=== PATIENT | female | born 1960 | race Caucasian/White ===

== ENCOUNTER 2021-11-30 09:56 | Outpatient (RCR) | payer BC, SELFPAY ==
--- NOTE | 2021-12-04 13:38 | PTOPEVAL ---
Thank you for referring Frida Hernandez to [facility].? The patient is scheduled to be seen for therapy? ____x/week for ___ weeks. Please review, sign, date and return this plan of care KALEE. I agree with and certify that the following plan of care is medically necessary. Referring Physician Date Admitting Provider: Attending Provider: Leoncio Conn, MD Referring Provider: *PT Outpatient Evaluation Start: 11/30/21 09:33 Freq: Status: Active Protocol: Document 11/30/21 09:46 [facility] (Rec: 11/30/21 13:04 [facility] [id number]) Therapy Assessment Status Assessment Status Assessment Status Evaluation Evaluation Information Problem Diagnosis R knee pain Onset 11/28/21 Additional Evaluation Detail LEFS = 31.3% Functionally Impaired Subjective Information Pt reports that she was on her Query Text:As Reported By Patient/ knees a lot last fall when Family she was redoing her floor. She was having a lot of pain in her R knee after that and was unable to walk well following that. She then went to the doctor to get XRAYs which were negative for arthritis. She has since been icing her knee and jose alejandro wrapping it to reduce the swelling. She states that her exercise consists of walking approx 3 days a week a few miles each day. 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 Prior Level of Function Comments Additional Prior Level of Function She was able to walk without Comments pain and was able to get up and down from the floor without any problems but now has pain and difficulty with these. Pain Assessment Timing of Pain Assessment Timing of Pain Assessment Pre-Treatment Pain Scale Pain Scale Used Numeric (1 - 10) Self Report Pain Assessment Right Knee(s) Reported Pain Level 3 Pain Description Aching,Tightness Pain Frequency Intermittent Greatest Pain Intensity 7 Pain Score Pain Score 3: Self Report Interventions Used Interventions Used By Clinicians Activity or ADL's,Education, Exercise Lower Extremity Range of Motion Knee Range of Motion Right Knee Flexio
== END 2021-11-30 11:46 | disposition home or self-care (01) ==
LOC: CHSPT 09:56
PROVIDERS: PCP Family Medicine; Visit Provider Family Medicine
DX: M25.561 Pain in right knee (principal)
CPT/HCPCS: 97014; 97110; 97161; G0283

== ENCOUNTER 2024-04-15 14:37 | Outpatient (CLI) | payer SELFPAY ==
--- NOTE | ~2024-04-15 | DEXA_ITS ---
Bone Density Report Name: YOANA ROUSSEAU Age: 63 Sex: Female Ethnicity: White Date of : 1960 Indication: screening for osteoporosis; height loss; hysterectomy; Referring Provider: JOYCELYN, KAYLEIGH Blue Study: Bone densitometry was performed. Exam Date: April 15, 2024 Accession number: [id number] Bone Density: Region BMD T-score Z-score Classification AP Spine(L1-L4) 0.929 -1.1 0.5 Osteopenia Femoral Neck (Left) 0.716 -1.2 0.2 Osteopenia Total Hip (Left) 0.962 0.2 1.3 Normal Femoral Neck (Right) 0.725 -1.1 0.3 Osteopenia Total Hip (Right) 1.003 0.5 1.6 Normal Femoral Neck Mean 0.721 -1.2 0.2 Osteopenia Total Hip Mean 0.983 0.3 1.4 Normal World Health Organization criteria for BMD impression classify patients as: Normal (T-score at or above -1.0), Osteopenia (T-score between -1.0 and -2.5), or Osteoporosis (T-score at or below -2.5). 10-year Fracture Risk: FRAX not reported because: Premenopausal woman Clinical Information Provided by Patient: Has the following medical conditions: Hysterectomy Patient maximum height was 53 Menopause Age: 51 Drinks caffeinated beverages Onset of menses at age 14 Premenopausal Impression: The patient's bone mass is within expected range for age, gender and ethnicity. Discussion: BONE DENSITY IS WITHIN EXPECTED LIMITS FOR AGE, SEX AND RACE. Bone density is within expected limits for age, sex and race at all sites measured. The patient should follow a healthful lifestyle (good nutrition with adequate calcium and vitamin D, and appropriate weight-bearing exercise). Follow-Up: Consider repeating this study in 2 to 3 years to reassess this patient's status, or sooner if there is some new clinical indication. Reported by: RADHA on 04/15/2024 3:17:00 PM. Reviewed, dictated and finalized at location [facility]
--- NOTE | ~2024-04-15 | MM_ITS ---
EXAMINATION: MM screening latha BI w niels HISTORY: Screening TECHNIQUE: Craniocaudal and mediolateral oblique 3-D tomosynthesis images were obtained and synthetic 2-D images were generated. CAD analysis was submitted and interpreted. COMPARISON: No prior mammogram is available for comparison at this institution. BREAST PARENCHYMAL COMPOSITION: Dense: The breasts are heterogeneously dense, which may obscure small masses FINDINGS: There are scattered asymmetries in the right breast. Cannot exclude superimposed mass. Ther e is a cluster of calcifications located in the upper central aspect of the left breast, middle third . IMPRESSION: 1. Scattered right breast asymmetries. Clustered indeterminate calcifications of the left breast. 2. Additional mammographic views and possible breast ultrasound are recommended. BI-RADS Category 0: Incomplete: Needs additional imaging evaluation. Reviewed, dictated and finalized at location B. IMPRESSION: 1. Scattered right breast asymmetries. Clustered indeterminate calcifications o f the left breast. 2. Additional mammographic views and possible breast ultrasound are recommended . BI-RADS Category 0: Incomplete: Needs additional imaging evaluation.
== END 2024-04-15 14:38 | disposition home or self-care (01) ==
LOC: CHSIMG 14:41
PROVIDERS: PCP Nurse Practitioner Family; Visit Provider Nurse Practitioner Family
DX: Z12.31 Encounter for screening mammogram for malignant neoplasm of breast (principal); Z78.0 Asymptomatic menopausal state; M85.89 Other specified disorders of bone density and structure, multiple sites
CPT/HCPCS: 77063; 77067; 77080